=== PATIENT | male | born 1960 | race Caucasian/White ===

== ENCOUNTER 2023-01-09 15:40 | Inpatient (IN) | payer MEDICARE ==
--- NOTE | 2023-01-09 16:24 | XR ---
EXAMINATION TYPE: XR chest 1V DATE OF EXAM: 01/09/2023 4:17 PM CLINICAL INDICATION:Male, 62 years old with history of difficulty breathing; [facility] COMPARISON: 07/02/2015 CT chest TECHNIQUE: XR chest 1V Frontal view of the chest. FINDINGS: Lungs/Pleura: Low lung volumes are present. There is no evidence of pleural effusion, focal consolida tion, or pneumothorax. Pulmonary vascularity: Pulmonary vascular congestion. Heart/mediastinum: Cardiomediastinal silhouette is enlarged and stable. Musculoskeletal: No acute osseous pathology. IMPRESSION: Low lung volumes with a generalized hazy appearance which could represent atelectasis versus pulmonar y edema correlate with serum BNP.
[2023-01-09 16:30] LABS: Basophils % (A) 0 %; Eosinophils # (A) 0.2 k/uL (0-0.7); Eosinophils % (A) 3 %; HCT 42.7 % (39.0-53.0); HGB 13.6 gm/dL (13.0-17.5); Hypochromasia Slight; Lymphocytes # (A) 1.5 k/uL (1.0-4.8); Lymphocytes % (A) 17 %; MCH 30.2 pg (25.0-35.0); MCHC 31.8 g/dL (31.0-37.0); MCV 94.9 fL (80.0-100.0); Mean Platelet Volume 7.7; Monocytes # (A) 0.8 k/uL (0-1.0); Monocytes % (A) 9 %; Neutrophils # (A) 6.1 k/uL (1.3-7.7); Neutrophils % (A) 70 %; Platelet Count 225 k/uL (150-450); RDW 13.4 % (11.5-15.5); WBC 8.7 k/uL (3.8-10.6)
--- NOTE | 2023-01-09 16:30 | ED ---
General Adult HPI - General Chief complaint: Shortness of Breath Stated complaint: sob Time Seen by Provider: 01/09/23 15:55 Source: patient, RN notes reviewed, old records reviewed Mode of arrival: wheelchair Limitations: no limitations - History of Present Illness Initial comments: This is a 62-year-old male who presents emergency Department for shortness of breath. Patient states over the last month he needs to be on his oxygen 100% of the time. Patient states he went to his doctor's office today because of the way he looked the patient was sent to the emergency department. And we were told that his oxygenation was in the 70s. Patient denies any recent fever chills or cough per patient denies chest pain or palpitations. Patient states it is more difficulty breathing and he does have more swelling in his legs. Patient states he was a long-time smoker. - Related Data Home Medications Medication Instructions Recorded Confirmed Albuterol Nebulized [Ventolin 2.5 mg INHALATION RT-BID 01/09/23 01/09/23 Nebulized] Aspirin EC [Ecotrin Low Dose] 81 mg PO DAILY 01/09/23 01/09/23 Budesonide [Pulmicort] 0.5 mg INHALATION RT-BID 01/09/23 01/09/23 Cholecalciferol (Vitamin D3) 75 mcg PO DAILY 01/09/23 01/09/23 [Vitamin D3 (3000 Iu)] Enalapril [Vasotec] 20 mg PO DAILY 01/09/23 01/09/23 Ibuprofen [Motrin] 800 mg PO BID 01/09/23 01/09/23 Troy-3/Dha/Epa/Fish Oil [Fish Oil 1 cap PO DAILY 01/09/23 01/09/23 1,000 mg Softgel] Simvastatin 40 mg PO DAILY 01/09/23 01/09/23 allopurinoL [Zyloprim] 300 mg PO DAILY 01/09/23 01/09/23 atenoloL [Tenormin] 50 mg PO BID 01/09/23 01/09/23 predniSONE 5 mg PO DAILY 01/09/23 01/09/23 Allergies Allergy/AdvReac Type Severity Reaction Status Date / Time No Known Allergies Allergy Verified 01/09/23 17:49 Review of Systems ROS Statement: Those systems with pertinent positive or pertinent negative responses have been documented in the HPI. ROS Other: All systems not noted in ROS Statement are negative. Past Medical History Past Medical History: COPD, Hypertension Additional Past Medical History / Comment(s): GOUT, Arthritis, High Cholestrol History of Any Multi-Drug Resistant Organisms: None Reported Past Surgical History: No Surgical Hx Reported Past Psychological History: No Psychological Hx Reported Smoking Status: Former smoker Past Alcohol Use History: Occasional Past Drug Use History: None Reported General Exam - General Exam Comments Initial Comments: GENERAL: Patient is well-developed and well-nourished. Patient is nontoxic and well- hydrated and is in mild distress. ENT: Neck is soft and supple. No significant lymphadenopathy is noted. Oropharynx is clear. Moist mucous membranes. Neck has full range of motion without elic iting any pain. EYES: The sclera were anicteric and conjunctiva were pink and moist. Extraocular movements were intact and pupils were equal round and reactive to light. Eyelids were unremarkable. PULMONARY: Diminished breath sounds in the bases with crackles bilaterally CARDIOVASCULAR: There is a regular rate and rhythm without any murmurs gallops or rubs. ABDOMEN: Soft and nontender with normal bowel sounds. SKIN: Skin is clear with no lesions or rashes and otherwise unremarkable. NEUROLOGIC: Patient is alert and oriented x3. Cranial nerves II through XII are grossly intact. Motor and sensory are also intact. Normal speech, volume and content. Symmetrical smile. MUSCULOSKELETAL: Normal extremities with adequate strength and full range of motion. 2+ bilaterally LYMPHATICS: No significant lymphadenopathy is noted PSYCHIATRIC: Normal psychiatric evaluation. Limitations: no limitations Course Vital Signs 01/09/23 01/09/23 01/09/23 15:42 16:00 16:08 Temperature 98.9 F Pulse Rate 84 81 Respiratory 25 H 24 Rate Blood Pressure 111/64 107/75 O2 Sat by Pulse 68 L 95 Oximetry Fraction of 50 50 Inspired Oxygen (FIO2) 01/09/23 01/09/23 01/09/23 16:30 17:00 17:52 Temperature Pulse Rate 78 68 Respiratory 13 19 Rate Blood Pressure 126/78 136/101 O2 Sat by Pulse 96 95 Oximetry Fraction of 50 50 50 Inspired Oxygen (FIO2) 01/09/23 01/09/23 01/09/23 19:33 20:15 21:16 Temperature Pulse Rate 79 82 Respiratory 17 Rate Blood Pressure 131/94 117/90 O2 Sat by Pulse 94 L 95 Oximetry Fraction of 50 Inspired Oxygen (FIO2) 01/10/23 01/10/23 01/10/23 00:00 01:30 01:32 Temperature Pulse Rate 71 Respiratory 20 Rate Blood Pressure 144/93 O2 Sat by Pulse 93 L 85 L 90 L Oximetry Fraction of Inspired Oxygen (FIO2) 01/10/23 01/10/23 01/10/23 04:00 06:00 07:54 Temperature Pulse Rate 78 83 76 Respiratory 16 22 Rate Blood Pressure 132/83 124/94 O2 Sat by Pulse 90 L 93 L Oximetry Fraction of Inspired Oxygen (FIO2) 01/10/23 01/10/23 01/10/23 07:58 08:10 09:00 Temperature Pulse Rate 70 92 Respiratory 20 Rate Blood Pressure 120/87 O2 Sat by Pulse 93 L 91 L Oximetry Fraction of Inspired Oxygen (FIO2) 01/10/23 01/10/23 01/10/23 11:46 11:57 14:35 Temperature Pulse Rate 79 78 Respiratory 24 22 Rate Blood Pressure 102/70 105/78 O2 Sat by Pulse 90 L 92 L 91 L Oximetry Fraction of Inspired Oxygen (FIO2) 01/10/23 01/10/23 01/10/23 16:45 17:21 17:33 Temperature Pulse Rate 76 79 79 Respiratory 22 Rate Blood Pressure 111/83 O2 Sat by Pulse 90 L Oximetry Fraction of Inspired Oxygen (FIO2) 01/10/23 01/10/23 18:34 20:00 Temperature 98.3 F Pulse Rate 84 86 Respiratory 22 20 Rate Blood Pressure 120/91 124/87 O2 Sat by Pulse 95 90 L Oximetry Fraction of Inspired Oxygen (FIO2) Medical Decision Making - Medical Decision Making EKG was interpreted by myself. EKG shows A. fib at 84 bpm QRS is 89 Q-T intervals 33 QTC is 424. Patient's EKG shows no ST segment patient or depression Was pt. sent in by a medical professional or institution (, PA, DIRECTOR OF GRADUATE MEDICAL EDUCATION, urgent care, hospital, or prison...) When possible be specific @ -Patient was sent in by his primary medical care doctor Did you speak to anyone other than the patient for history (EMS, parent, family, police, friend...)? What history was obtained from this source @ - gave a lot of the history since patient was out of breath Did you review nursing and triage notes (agree or disagree)? Why? @ -I reviewed and agree with nursing and triage notes Were old charts reviewed (outside hosp., previous admission, EMS record, old EKG, old radiological studies, urgent care reports/EKG's, prison records)? Report findings @ -I reviewed prior labs and prior radiological studies Differential Diagnosis (chest pain, altered mental status, abdominal pain women, abdominal pain men, vaginal bleeding, weakness, fever, dyspnea, syncope, headache, dizziness, GI bleed, back pain, seizure, CVA, palpatations, mental health, musculoskeletal)? @ -Differential Dyspnea: Coronary syndrome, arrhythmia, tamponade, asthma, COPD, pulmonary embolism, pneumonia, pneumothorax, pulmonary effusion, anaphylaxis, diabetic ketoacidosis, flailed chest, pulmonary contusion, diaphragmatic rupture, anemia, neuromuscular, this is not meant to be an all-inclusive list. EKG interpreted by me (3pts min.). @ -As above X-rays interpreted by me (1pt min.). @ -Acute pulmonary edema CT interpreted by me (1pt min.). @ -None done U/S interpreted by me (1pt. min.). @ -None done What testing was considered but not performed or refused? (CT, X-rays, U/S, la bs)? Why? @ -None What meds were considered but not given or refused? Why? @ -None Did you discuss the management of the patient with other professionals (professionals i.e. , PA, DIRECTOR OF GRADUATE MEDICAL EDUCATION, lab, RT, psych nurse, psychotherapist social worker, tooth cutter, teacher, delinquency prevention officer, nurse outreach case manager)? Give summary @ -I spoke with a [facility] hospital they agreed to admit the patient Was smoking cessation discussed for >3mins.? @ -No Was critical care preformed (if so, how long)? @ -5 minutes Were there social determinants of health that impacted care today? How? (Homelessness, low income, unemployed, alcoholism, drug addiction, transportation, low edu. Level, literacy, decrease access to med. care, usp, rehab)? @ -No Was there de-escalation of care discussed even if they declined (Discuss DNR or withdrawal of care, Hospice)? DNR status @ -No What co-morbidities impacted this encounter? (DM, HTN, Smoking, COPD, CAD, Cancer, CVA, ARF, Chemo, Hep., AIDS, mental health diagnosis, sleep apnea, morbid obesity)? @ -None Was patient admitted / discharged? Hospital course, mention meds given and route, prescriptions, significant lab abnormalities, going to OR and other pertinent info. @ -Patient was placed on BiPAP on arrival because he was oxygenating in the 70s. Patient was feeling considerably better on BiPAP x-ray showed pulmonary edema I started the patient on Lasix. Patient will be getting a CAT scan he will PE. I spoke to [facility] hospitalist agreed to admit the patient admitted the patient wrote admitting orders I consulted cardiology Undiagnosed new problem with uncertain prognosis? @ -No Drug Therapy requiring intensive monitoring for toxicity (Heparin, Nitro, Insulin, Cardizem)? @ -No Were any procedures done? @ -No Diagnosis/symptom? @ -Acute pulmonary edema Acute, or Chronic, or Acute on Chronic? @ -Acute Uncomplicated (without systemic symptoms) or Complicated (systemic symptoms)? @ -Complicated Side effects of treatment? @ -No Exacerbation, Progression, or Severe Exacerbation? @ -No Poses a threat to life or bodily function? How? (Chest pain, USA, IA, pneumonia, PE, COPD, DKA, ARF, appy, cholecystitis, CVA, Diverticulitis, Homicidal, Suicidal, threat to staff... and all critical care pts) @ -Yes this could lead to hypoxia and end organ dysfunction - Lab Data Result diagrams: 01/09/23 16:10 01/09/23 16:10 Lab Results 01/09/23 01/09/23 01/09/23 Range/Units 16:10 16:10 16:10 WBC 8.7 (3.8-10.6) k/uL RBC 4.50 (4.30-5.90) m/uL Hgb 13.6 (13.0-17.5) gm/dL Hct 42.7 (39.0-53.0) % MCV 94.9 (80.0-100.0) fL MCH 30.2 (25.0-35.0) pg MCHC 31.8 (31.0-37.0) g/dL RDW 13.4 (11.5-15.5) % Plt Count 225 (150-450) k/uL MPV 7.7 Neutrophils % 70 % Lymphocytes % 17 % Monocytes % 9 % Eosinophils % 3 % Basophils % 0 % Neutrophils # 6.1 (1.3-7.7) k/uL Lymphocytes # 1.5 (1.0-4.8) k/uL Monocytes # 0.8 (0-1.0) k/uL Eosinophils # 0.2 (0-0.7) k/uL Basophils # 0.0 (0-0.2) k/uL Hypochromasia Slight PT 10.8 (10.0-12.5) sec INR 1.0 (<1.2) APTT 25.3 (22.0-30.0) sec D-Dimer 0.91 H (<0.60) mg/L FEU Sample Site ABG pH (7.35-7.45) ABG pCO2 (35-45) mmHg ABG pO2 (83-108) mmHg ABG HCO3 (21-25) mmol/L ABG Total CO2 (19-24) mmol/L ABG O2 Saturation (94-97) % ABG Base Excess mmol/L Brady Test VBG pH (7.31-7.41) VBG pCO2 (37-51) mmHg VBG HCO3 (24-28) mmol/L FiO2 % Sodium 137 (137-145) mmol/L Potassium 4.4 (3.5-5.1) mmol/L Chloride 88 L (98-107) mmol/L Carbon Dioxide 42 H* (22-30) mmol/L Anion Gap 7 mmol/L BUN 14 (9-20) mg/dL Creatinine 0.58 L (0.66-1.25) mg/dL Est GFR (CKD-EPI)AfAm >90 (>60 ml/min/1.73 sqM) Est GFR (CKD-EPI)NonAf >90 (>60 ml/min/1.73 sqM) Glucose 97 (74-99) mg/dL Lactic Ac Sepsis Rflx Plasma Lactic Acid Jair (0.7-2.0) mmol/L Calcium 9.3 (8.4-10.2) mg/dL Magnesium 1.7 (1.6-2.3) mg/dL Total Bilirubin 0.7 (0.2-1.3) mg/dL AST 20 (17-59) U/L ALT 14 (4-49) U/L Alkaline Phosphatase 51 (38-126) U/L Troponin I (0.000-0.034) ng/mL NT-Pro-B Natriuret Pep 2020 pg/mL Total Protein 6.8 (6.3-8.2) g/dL Albumin 3.8 (3.5-5.0) g/dL Influenza Type A (PCR) (Not Detectd) Influenza Type B (PCR) (Not Detectd) RSV (PCR) (Not Detectd) SARS-CoV-2 (PCR) (Not Detectd) 01/09/23 01/09/23 01/09/23 Range/Units 16:10 16:10 16:10 WBC (3.8-10.6) k/uL RBC (4.30-5.90) m/uL Hgb (13.0-17.5) gm/dL Hct (39.0-53.0) % MCV (80.0-100.0) fL MCH (25.0-35.0) pg MCHC (31.0-37.0) g/dL RDW (11.5-15.5) % Plt Count (150-450) k/uL MPV Neutrophils % % Lymphocytes % % Monocytes % % Eosinophils % % Basophils % % Neutrophils # (1.3-7.7) k/uL Lymphocytes # (1.0-4.8) k/uL Monocytes # (0-1.0) k/uL Eosinophils # (0-0.7) k/uL Basophils # (0-0.2) k/uL Hypochromasia PT (10.0-12.5) sec INR (<1.2) APTT (22.0-30.0) sec D-Dimer (<0.60) mg/L FEU Sample Site ABG pH (7.35-7.45) ABG pCO2 (35-45) mmHg ABG pO2 (83-108) mmHg ABG HCO3 (21-25) mmol/L ABG Total CO2 (19-24) mmol/L ABG O2 Saturation (94-97) % ABG Base Excess mmol/L Brady Test VBG pH 7.40 (7.31-7.41) VBG pCO2 74 H* (37-51) mmHg VBG HCO3 46 H (24-28) mmol/L FiO2 % Sodium (137-145) mmol/L Potassium (3.5-5.1) mmol/L Chloride (98-107) mmol/L Carbon Dioxide (22-30) mmol/L Anion Gap mmol/L BUN (9-20) mg/dL Creatinine (0.66-1.25) mg/dL Est GFR (CKD-EPI)AfAm (>60 ml/min/1.73 sqM) Est GFR (CKD-EPI)NonAf (>60 ml/min/1.73 sqM) Glucose (74-99) mg/dL Lactic Ac Sepsis Rflx Plasma Lactic Acid Jair 2.3 H* (0.7-2.0) mmol/L Calcium (8.4-10.2) mg/dL Magnesium (1.6-2.3) mg/dL Total Bilirubin (0.2-1.3) mg/dL AST (17-59) U/L ALT (4-49) U/L Alkaline Phosphatase (38-126) U/L Troponin I <0.012 (0.000-0.034) ng/mL NT-Pro-B Natriuret Pep pg/mL Total Protein (6.3-8.2) g/dL Albumin (3.5-5.0) g/dL Influenza Type A (PCR) (Not Detectd) Influenza Type B (PCR) (Not Detectd) RSV (PCR) (Not Detectd) SARS-CoV-2 (PCR) (Not Detectd) 01/09/23 01/09/23 01/09/23 Range/Units 16:19 17:28 17:40 WBC (3.8-10.6) k/uL RBC (4.30-5.90) m/uL Hgb (13.0-17.5) gm/dL Hct (39.0-53.0) % MCV (80.0-100.0) fL MCH (25.0-35.0) pg MCHC (31.0-37.0) g/dL RDW (11.5-15.5) % Plt Count (150-450) k/uL MPV Neutrophils % % Lymphocytes % % Monocytes % % Eosinophils % % Basophils % % Neutrophils # (1.3-7.7) k/uL Lymphocytes # (1.0-4.8) k/uL Monocytes # (0-1.0) k/uL Eosinophils # (0-0.7) k/uL Basophils # (0-0.2) k/uL Hypochromasia PT (10.0-12.5) sec INR (<1.2) APTT (22.0-30.0) sec D-Dimer (<0.60) mg/L FEU Sample Site Lbrach ABG pH 7.44 (7.35-7.45) ABG pCO2 71 H* (35-45) mmHg ABG pO2 61 L (83-108) mmHg ABG HCO3 48 H* (21-25) mmol/L ABG Total CO2 50 H (19-24) mmol/L ABG O2 Saturation 92.1 L (94-97) % ABG Base Excess 23.3 mmol/L Brady Test Yes VBG pH (7.31-7.41) VBG pCO2 (37-51) mmHg VBG HCO3 (24-28) mmol/L FiO2 50 % Sodium (137-145) mmol/L Potassium (3.5-5.1) mmol/L Chloride (98-107) mmol/L Carbon Dioxide (22-30) mmol/L Anion Gap mmol/L BUN (9-20) mg/dL Creatinine (0.66-1.25) mg/dL Est GFR (CKD-EPI)AfAm (>60 ml/min/1.73 sqM) Est GFR (CKD-EPI)NonAf (>60 ml/min/1.73 sqM) Glucose (74-99) mg/dL Lactic Ac Sepsis Rflx Y Plasma Lactic Acid Jair (0.7-2.0) mmol/L Calcium (8.4-10.2) mg/dL Magnesium (1.6-2.3) mg/dL Total Bilirubin (0.2-1.3) mg/dL AST (17-59) U/L ALT (4-49) U/L Alkaline Phosphatase (38-126) U/L Troponin I (0.000-0.034) ng/mL NT-Pro-B Natriuret Pep pg/mL Total Protein (6.3-8.2) g/dL Albumin (3.5-5.0) g/dL Influenza Type A (PCR) Not Detected (Not Detectd) Influenza Type B (PCR) Not Detected (Not Detectd) RSV (PCR) Not Detected (Not Detectd) SARS-CoV-2 (PCR) Not Detected (Not Detectd) Disposition Clinical Impression: Acute pulmonary edema Disposition: ADMITTED IP TO THIS HOSP
[2023-01-09 16:31] LABS: VBG PH 7.4 (7.31-7.41)
[2023-01-09 16:45] LABS: Partial Thromboplastin Time 25.3 sec (22.0-30.0); Prothrombin Time 10.8 sec (10.0-12.5)
[2023-01-09 17:26] LABS: ALT 14 U/L (4-49); AST 20 U/L (17-59); African American GFR (CKD) >90 (>60 ml/min/1.73 sqM); Albumin 3.8 g/dL (3.5-5.0); Alkaline Phosphatase 51 U/L (38-126); Anion Gap 7 mmol/L; Blood Urea Nitrogen 14 mg/dL (9-20); Calcium 9.3 mg/dL (8.4-10.2); Chloride 88 mmol/L (98-107); Glucose 97 mg/dL (74-99); Magnesium 1.7 mg/dL (1.6-2.3); NT-Pro-B-Type Natriuretic Pept 2020 pg/mL; Non-African American GFR(CKD) >90 (>60 ml/min/1.73 sqM); Potassium 4.4 mmol/L (3.5-5.1); Sodium 137 mmol/L (137-145); Total Bilirubin 0.7 mg/dL (0.2-1.3); Total Protein 6.8 g/dL (6.3-8.2)
[2023-01-09 17:28] LABS: Carbon Dioxide 42 mmol/L (22-30)
[2023-01-09 17:43] LABS: ABG Base Excess 23.3 mmol/L; ABG Oxygen Saturation 92.1 % (94-97); ABG PH 7.44 (7.35-7.45); ABG PO2 61 mmHg (83-108); ABG TCO2 50 mmol/L (19-24); Allen Test Performed? Yes
[2023-01-09 17:47] LABS: ABG HCO3 48 mmol/L (21-25); ABG PCO2 71 mmHg (35-45)
[2023-01-09] MEDS ORDERED: FUROSEMIDE 10 MG/ML 4 ML VIAL IV STA (18:07)
--- NOTE | 2023-01-09 20:19 | CT ---
CT CHEST FOR PULMONARY EMBOLISM. EXAMINATION TYPE: CT chest angio for PE DATE OF EXAM: 01/09/2023 INDICATION: Increased SOB x1mo. Sent to ER by PCP due to low oxygen SOB. PCP said he heard crackles i n lungs and did not like color of pt. JULIANNA and elevated D-dimer. Pt was on 2 liters of O2 at home and he increased it to 5 [address] his own. CT DLP: 833.1 mGycm, Automated exposure control for dose reduction was used. CONTRAST: Patient injected with 100 ml mL of Isovue 370. COMPARISON: None TECHNIQUE: CT of the chest is performed on a spiral scan at 2 mm thick sections. Study is performed with intravenous contrast timed for evaluation for pulmonary embolism. This will limit additional po rtions of the evaluation. 3-D MIP images reconstructed by the technologist are reviewed on the compu ter in the coronal and sagittal planes. FINDINGS: No persistent filling defects are evident to suggest an acute pulmonary embolism. There is a prominent 1.5 cm lymph node paratracheal region. Additional smaller lymph nodes are presen t. There are several lymph nodes measuring greater than 1 cm. Additional workup is recommended. Metas tatic disease should be considered. The ascending aorta diameter at the level of the main pulmonary artery is 4.1 cm. The main pulmonary artery diameter at the bifurcation is 4.1 cm. Coronary artery c alcification is present. Small right and minimal left pleural effusions are present. Compressive atelectasis or consolidation may be at the lung bases adjacent to the pleural effusions. Limited CT section through the upper abdomen. Reflux into the superior portion of the inferior vena c adina is evident. No septal deviation is evident.. IMPRESSION: 1. No acute pulmonary embolism. 2. Multiple enlarged mediastinal lymph nodes. Additional workup is recommended. 3. Small right and minimal left pleural effusion. Some adjacent compressive atelectasis or infiltrate is likely present.
[2023-01-09] MEDS: FUROSEMIDE 10 MG/ML 4 ML VIAL IV SCH (20:33)
[2023-01-09] MEDS: NITROGLYCERIN OINT 1 INCH/GM PACKET TOPICAL SCH (23:53)
[2023-01-10] MEDS: NITROGLYCERIN OINT 1 INCH/GM PACKET TOPICAL SCH ×3 (06:46→18:35)
[2023-01-10] MEDS ORDERED: ALBUTEROL NEBULIZED 2.5 MG/3 ML INHALATION SCH (08:00)
[2023-01-10] MEDS ORDERED: BUDESONIDE 0.5 MG/2 ML NEBU INHALATION SCH (08:00)
[2023-01-10] MEDS: ATORVASTATIN 20 MG TAB PO SCH (08:59)
[2023-01-10] MEDS: FUROSEMIDE 10 MG/ML 4 ML VIAL IV SCH ×2 (08:59→16:46)
[2023-01-10] MEDS: CHOLECALCIFEROL 25 MCG (1000 IU) TABLET PO SCH (08:59)
[2023-01-10] MEDS: allopurinoL 300 MG TAB PO SCH (09:00)
[2023-01-10] MEDS: lisinopriL 20 MG TAB PO SCH (09:00)
[2023-01-10] MEDS ORDERED: NON FORMULARY DRUG (Omega-3/Dha/Epa/Fish Oil [Fish Oil 1,000 Mg Softgel] 1 EACH Capsule) PO SCH (09:00)
[2023-01-10] MEDS: ASPIRIN 81 MG PO SCH (09:00)
[2023-01-10] MEDS: atenoloL 50 MG TAB PO SCH ×2 (09:00→22:44)
[2023-01-10] MEDS: IBUPROFEN 800 MG TAB PO SCH ×2 (09:00→22:43)
--- NOTE | 2023-01-10 09:52 | CONS ---
CONSULTATION CHIEF COMPLAINT: Shortness of breath. HISTORY OF PRESENT ILLNESS: Lucas is a 62-year-old gentleman, who is morbidly obese, has history of COPD on home O2, who was sent to the hospital by his primary care physician. He was somewhat short of breath and when he went to see his primary care physician, his oxygenation was very low, sent to the ER where he had been treated with nebulizers and diuretics with significant improvement in his symptoms. At the time of my evaluation, his oxygenation is better. He does not seem to be in respiratory distress so far. He had received IV Lasix and nebulizers. The patient's clinical presentation seems to be due to a combination of CHF and COPD exacerbations. I am going to obtain a 2D echo to document his LV function. PAST MEDICAL HISTORY: Significant for COPD, dyslipidemia, hypertension. MEDICATIONS: Medications at home included: 1. Fish oil. 2. Aspirin. 3. Vitamin D. 4. Simvastatin. 5. Motrin. 6. Ventolin. 7. Tenormin 50 b.i.d. 8. Zyloprim. 9. Vasotec. ALLERGIES: There are no known drug allergies. FAMILY HISTORY: Negative for premature coronary artery disease. SOCIAL HISTORY: Negative for current smoking, EtOH abuse or drug abuse. REVIEW OF SYSTEMS: A review of systems has been performed, pertinent's are as documented. PHYSICAL EXAMINATION: GENERAL: He is comfortable at rest. VITAL SIGNS: Heart rate is 70 beats per minute, blood pressure is 124/94, respiratory rate 18, O2 saturation is 93% on 12 L. NECK: There is no jugular venous distention. Carotid upstroke is normal. There is no bruit. CHEST: Reveals diminished air entry with bilateral rhonchi. HEART: Reveals first and second heart sounds. A grade 4/6 ejection systolic murmur and a systolic murmur at the apex. ABDOMEN: Soft. EXTREMITIES: Reveal bilateral moderate edema. LABORATORY DATA: Show that the BNP is elevated at 2020. Troponin is normal. COVID test is negative. Blood gases reveal a pH of 7.4, pCO2 of 71, PO2 of 61, BUN is 14, creatinine is 0.5. ASSESSMENT: 1. Acute exacerbation of chronic obstructive pulmonary disease. 2. Acute-onset congestive heart failure. 3. Valvular heart disease. PLAN: We will treat the patient with IV Lasix, aspirin, beta blockers, CIARA inhibitors. Obtain a 2D echo and decide on further course of action based on how his symptoms evolve and what the echo shows. MMODL / IJN: [id number] /
--- NOTE | 2023-01-10 12:42 | CA ---
Transthoracic Echo Report Name: Lucas Titus Age: 62 Gender: M : 1960 Exam Date: 01/10/2023 10:02 Exam Location: [facility] Ht (in): 72 Wt (lb): 270 Ordering Physician: Janusz Grullon MD ([id number]) Attending/Referring Phys: Yadi CARRERO Residential Plumber Eli Wood RDCS Procedure CPT: Indications: chf Cardiac Hx: Technical Quality: Technically difficult study Contrast 1: Definity Total Dose (mL): 2 Contrast 2: Total Dose (mL): MEASUREMENTS (Male / Female) Normal Values 2D ECHO LV Diastolic Diameter PLAX 4.5 cm 4.2 - 5.9 / 3.9 - 5.3 cm LV Systolic Diameter PLAX 3.7 cm IVS Diastolic Thickness 1.9 cm 0.6 - 1.0 / 0.6 - 0.9 cm LVPW Diastolic Thickness 1.8 cm 0.6 - 1.0 / 0.6 - 0.9 cm LV Relative Wall Thickness 0.8 RV Internal Dim ED PLAX 3.3 cm M-MODE Aortic Root Diameter MM 3.3 cm LA Systolic Diameter MM 5.7 cm LA Ao Ratio MM 1.7 AV Cusp Separation MM 1.7 cm DOPPLER AV Peak Velocity 123.1 cm/s AV Peak Gradient 6.1 mmHg AV Mean Velocity 90.7 cm/s AV Mean Gradient 3.5 mmHg AV Velocity Time Integral 23.8 cm LVOT Peak Velocity 94.9 cm/s LVOT Peak Gradient 3.6 mmHg LVOT Velocity Time Integral 20.0 cm MV Area PHT 2.2 cm??? Mitral E Point Velocity 96.4 cm/s Mitral A Point Velocity 21.9 cm/s Mitral E to A Ratio 4.4 MV Deceleration Time 346.4 ms MV E' Velocity 5.3 cm/s Mitral E to MV E' Ratio 18.3 TR Peak Velocity 166.9 cm/s TR Peak Gradient 11.1 mmHg Right Ventricular Systolic Press 16.1 mmHg FINDINGS Left Ventricle Severely increased left ventricular wall thickness. Left ventricular cavity size normal. Left ventricular ejection fraction is estimated at 55-60 %. Right Ventricle Normal right ventricular size and function. Right ventricle not well visualized. Right ventricular systolic pressure within normal limits. Right Atrium Right atrium not well visualized. Left Atrium Moderately increased left atrial area. Mitral Valve Mitral valve not well visualized. Moderate mitral annular calcification. Aortic Valve No aortic valve stenosis or regurgitation.aortic valve sclerosis. Tricuspid Valve Mild tricuspid regurgitation.structurally normal tricuspid valve. Pulmonic Valve Pulmonic valve not well visualized. Pericardium No pericardial effusion. Aorta Normal size aortic root and proximal ascending aorta. CONCLUSIONS Technically difficult study. Definity ECHO contrast used for improved visualization of the endocardial borders (inadequate visualization of two or more contiguous segments). Normal left ventricle size and systolic function, severe hypertrophy was noted Limited Doppler study with mild tricuspid regurgitation Previewed by: Dr. Justa Larios MD (Electronically Signed) Final Date: 10 January 2023 12:41
[2023-01-10] MEDS ORDERED: MELATONIN 3 MG TABLET PO PRN (13:10)
[2023-01-10] MEDS ORDERED: ALPRAZolam 0.25 MG TAB PO PRN (13:10)
[2023-01-10] MEDS ORDERED: ONDANSETRON 4 MG/2 ML VIAL IVP PRN (13:10)
[2023-01-10] MEDS ORDERED: ACETAMINOPHEN TAB 325 MG TAB PO PRN (13:10)
[2023-01-10] MEDS ORDERED: CALCIUM CARBONATE 500 MG CHEWABLE PO PRN (13:10)
[2023-01-10] MEDS ORDERED: NALOXONE 0.4 MG/ML 1 ML VIAL IV PRN (13:10)
[2023-01-10] MEDS ORDERED: LACTULOSE 20 GM/30 ML CUP PO PRN (13:10)
[2023-01-10] MEDS: guaiFENesin 600 MG TABLET.ER PO SCH ×3 (14:33→22:44)
[2023-01-10] MEDS: methylPREDNISolone SOD SUCCI 125 MG/2 ML VIAL IV SCH (14:34)
[2023-01-10] MEDS: ENOXAPARIN 40 MG/0.4 ML SYRINGE SQ SCH (14:36)
[2023-01-10] MEDS: FORMOTEROL FUMARATE 20 MCG/2 ML NEBU INHALATION SCH ×2 (16:59→20:26)
[2023-01-10] MEDS: IPRATROPIUM-ALBUTEROL 3 ML NEB INHALATION SCH ×3 (17:19→20:26)
--- NOTE | 2023-01-10 19:02 | P.HPIM ---
History of Present Illness H&P Date: 01/10/23 Chief Complaint: Short of breath This is a 62-year-old patient, follows with Dr. Red Ramirez. Patient has been getting more short of breath. Reduce his family doctor who not iced him to be looking caruso. Short of breath. White sputum. No fever no chills. Decreased appetite. No chest pain. Patient has home oxygen 2 L. Patient was here put on BiPAP on arrival. Tired. Up in a chair. Review of systems: GEN.: Tired EYES: None HEENT: None NECK: None RESPIRATORY: As above CARDIOVASCULAR: Edema GASTROINTESTINAL: None GENITOURINARY: None MUSCULOSKELETAL: Some joint pains LYMPHATICS: None HEMATOLOGICAL: None PSYCHIATRY: None NEUROLOGICAL: None Past medical history to include: COPD, hypertension, home oxygen, gout, arthritis, hypercholesterolemia Social history: . Retired from different jobs. Been drinking somewhat excessive alcohol in the past. Smoked a pack a day for 42 years, stopped 3 years ago. Physical examination: VITAL SIGNS: 98.9, 94, 25, 1 on , 95% on BiPAP-on presentation GENERAL: BMI 36.6, sitting up in a chair awake short of breath. EYES: Pupils equal. Conjunctiva normal. HEENT: External appearance of nose and ears normal, oral cavity grossly normal. NECK: JVD unable to assess; masses not palpable. HEART: First and second heart sounds are normal; edema present. LUNGS: Respiratory rate increased decreased breath sounds, crackles. ABDOMEN: Soft, nontender, liver spleen not palpable, no masses palpable. PSYCH: Alert and oriented x3; mood and affect normal. MUSCULOSKELETAL:No Clubbing/cyanosis;muscles-grossly intact NEUROLOGICAL: Cranial nerves grossly intact; no facial asymmetry, power and sensation grossly intact. LYMPHATICS: No lymph nodes palpable in the axilla and neck INVESTIGATIONS, reviewed in the clinical context: January 09: White count 8.7 hemoglobin 13.6 platelets 225 sodium 137 potassium 4.4 bicarb 42 BUN 14 creatinine 0.58 lactic acid 2.3 Troponin I less than 0.012 proBNP 2019 Influenza type A, B, RSV, COVID-19: Not detected ABG: PH 7.4 pCO2 71 pO2 61 EKG tracing personally reviewed by me-possible atrial fibrillation. Chest x-ray film personally reviewed by me-cardiomegaly, venous prominence Chest CTA: No PE. Multiple enlarged mediastinal lymph node. Small right and minimal left pleural effusion. Assessment plan: -Acute congestive heart failure exacerbation, EF not known Fluid restriction. IV Lasix. Cardiology consulted. Telemetry. -Acute COPD exacerbation in a ex-smoker DuoNeb every 4. Nebulized Perforomist and Pulmicort. IV Solu-Medrol. -Obesity BMI 36.6 Weight loss measures -Acute hypoxic hypercapnic respiratory failure from seated exacerbation and CHF Patient is put on BiPAP on presentation. -Essential hypertension Vasotec 20 mg, Tenormin 50 mg twice a day -Hypercholesterolemia Simvastatin -Primary osteoarthritis Tylenol when necessary Consultation to pulmonary and cardiology. 2-D echocardiogram. Home medications reviewed. Discussed with patient Past Medical History Past Medical History: COPD, Hypertension Additional Past Medical History / Comment(s): GOUT, Arthritis, High Cholestrol History of Any Multi-Drug Resistant Organisms: None Reported Past Surgical History: No Surgical Hx Reported Past Psychological History: No Psychological Hx Reported Smoking Status: Former smoker Past Alcohol Use History: Occasional Past Drug Use History: None Reported Medications and Allergies Home Medications Medication Instructions Recorded Confirmed Type Albuterol Nebulized [Ventolin 2.5 mg INHALATION RT-BID 01/09/23 01/09/23 History Nebulized] Aspirin EC [Ecotrin Low Dose] 81 mg PO DAILY 01/09/23 01/09/23 History Budesonide [Pulmicort] 0.5 mg INHALATION RT-BID 01/09/23 01/09/23 History Cholecalciferol (Vitamin D3) 75 mcg PO DAILY 01/09/23 01/09/23 History [Vitamin D3 (3000 Iu)] Enalapril [Vasotec] 20 mg PO DAILY 01/09/23 01/09/23 History Ibuprofen [Motrin] 800 mg PO BID 01/09/23 01/09/23 History [place]-3/Dha/Epa/Fish Oil [Fish Oil 1 cap PO DAILY 01/09/23 01/09/23 History 1,000 mg Softgel] Simvastatin 40 mg PO DAILY 01/09/23 01/09/23 History allopurinoL [Zyloprim] 300 mg PO DAILY 01/09/23 01/09/23 History atenoloL [Tenormin] 50 mg PO BID 01/09/23 01/09/23 History predniSONE 5 mg PO DAILY 01/09/23 01/09/23 History Allergies Allergy/AdvReac Type Severity Reaction Status Date / Time No Known Allergies Allergy Verified 01/09/23 17:49 Physical Exam Vitals: Vital Signs Temp Pulse Resp BP Pulse Ox FiO2 01/10/23 09:00 92 20 120/87 91 L 01/10/23 08:10 70 01/10/23 07:58 93 L 01/10/23 07:54 76 01/10/23 06:00 83 22 124/94 93 L 01/10/23 04:00 78 16 132/83 90 L 01/10/23 01:32 90 L 01/10/23 01:30 85 L 01/10/23 00:00 71 20 144/93 93 L 01/09/23 21:16 82 117/90 95 01/09/23 20:15 79 17 131/94 94 L 01/09/23 19:33 50 01/09/23 17:52 50 01/09/23 17:00 68 19 136/101 95 50 01/09/23 16:30 78 13 126/78 96 50 01/09/23 16:08 50 01/09/23 16:00 81 24 107/75 95 50 01/09/23 15:42 98.9 F 84 25 H 111/64 68 L Intake and Output 01/09/23 01/10/23 01/10/23 22:59 06:59 14:59 Other: Weight 122.47 kg Results CBC & Chem 7: 01/09/23 16:10 01/09/23 16:10 Labs: Abnormal Lab Results - Last 24 Hours (Table) 01/09/23 01/09/23 01/09/23 Range/Units 16:10 16:10 16:10 D-Dimer 0.91 H (<0.60) mg/L FEU ABG pCO2 (35-45) mmHg ABG pO2 (83-108) mmHg ABG HCO3 (21-25) mmol/L ABG Total CO2 (19-24) mmol/L ABG O2 Saturation (94-97) % VBG pCO2 (37-51) mmHg VBG HCO3 (24-28) mmol/L Chloride 88 L (98-107) mmol/L Carbon Dioxide 42 H* (22-30) mmol/L Creatinine 0.58 L (0.66-1.25) mg/dL Plasma Lactic Acid Jair 2.3 H* (0.7-2.0) mmol/L 01/09/23 01/09/23 Range/Units 16:10 17:40 D-Dimer (<0.60) mg/L FEU ABG pCO2 71 H* (35-45) mmHg ABG pO2 61 L (83-108) mmHg ABG HCO3 48 H* (21-25) mmol/L ABG Total CO2 50 H (19-24) mmol/L ABG O2 Saturation 92.1 L (94-97) % VBG pCO2 74 H* (37-51) mmHg VBG HCO3 46 H (24-28) mmol/L Chloride (98-107) mmol/L Carbon Dioxide (22-30) mmol/L Creatinine (0.66-1.25) mg/dL Plasma Lactic Acid Jair (0.7-2.0) mmol/L
[2023-01-10] MEDS: BUDESONIDE 1 MG/2 ML NEBU INHALATION SCH ×2 (20:13→20:26)
[2023-01-11] MEDS: IPRATROPIUM-ALBUTEROL 3 ML NEB INHALATION SCH ×6 (00:14→21:41)
[2023-01-11] MEDS: FUROSEMIDE 10 MG/ML 4 ML VIAL IV SCH ×3 (00:30→15:56)
[2023-01-11] MEDS: methylPREDNISolone SOD SUCCI 125 MG/2 ML VIAL IV SCH ×2 (00:31→08:59)
[2023-01-11] MEDS: NITROGLYCERIN OINT 1 INCH/GM PACKET TOPICAL SCH (00:31)
--- NOTE | 2023-01-11 01:57 | P.CNPUL ---
History of Present Illness Consult date: 01/11/23 Requesting physician: Dylon Barry Reason for consult: dyspnea, hypoxemia Chief complaint: found to be hypoxic at doctor's office History of present illness: I am seeing this patient in consultation today 01/11/2023 after he was sent in from his primary care physician's office after being found to be hypoxic. Patient is a 62-year-old white male with past medical history significant for severe oxygen and steroid dependent COPD, hypertension, and is a previous tobacco dependence. His primary care provider is Dr. Ramirez. Patient has followed with Dr. Miller at the pulmonary office in the past, for his severe oxygen and steroid dependent COPD, but has not been back for some years. He has an FEV1 40% of predicted. Patient reportedly had a routine follow-up visit with his primary care provider yesterday, and was found to be hypoxic. On arrival to the emergency room, he was placed on BiPAP with settings 16/6 and FiO2 of 50%. ABGs done on these settings show a pO2 of 61, CO2 of 71, pH is 7.44. Currently, the BiPAP is on standby. Patient is currently sitting in the recliner, on 6 L/m nasal cannula, in no acute distress. SpO2 is 91%, which is likely near his baseline. Patient states that he chronically wears 2 L nasal cannula at home, but has increased his oxygen over the last couple months, and is up to 6 L/m nasal cannula at home. He also admits increased lower extremity swelling. Denies any chest pain, heart palpitations, orthopnea. He denies any fevers, chills, cough, chest pain, hemoptysis. Chest x-ray on arrival was consistent with pulmonary edema. Follow-up chest CTA did not show any acute pulmonary embolism. It showed small right and minimal left pleural effusions with adjacent compressive atelectasis versus infiltrate. There was also was incidentally some multiple enlarged mediastinal lymph nodes, measuring up to 1.5 cm in the paratracheal region. There were several other lymph nodes measuring greater than 1 cm. This appears to be somewhat chronic finding, as the patient had a chest CT back in 2015 which showed a 1.4 x 1 CM right paratracheal lymph node and a 1.9 x 1.3 subcarinal lymph node. Echocardiogram showed a preserved ejection fraction of 55-60% and severe increased LVH. NT proBNP was elevated at 2020. EKG on arrival shows atrial fibrillation with controlled ventricular rate. No acute ischemic changes. CBC unremarkable. CMP on arrival showed a sodium 137, potassium 4.4, chloride 88, serum bicarb 42, BUN 14, creatinine 0.58, glucose 97. Troponin less than 0.012. Negative for influenza and RSV, COVID-19. Patient has been afebrile. He is being monitored on the cardiac stepdown unit. Review of Systems REVIEW OF SYSTEMS: CONSTITUTIONAL: Denies any recent significant weight loss or weight gain. Patient does not weigh himself. Denies any fever. EYES: Denies change in vision. EARS, NOSE, MOUTH, THROAT: Denies headaches, denies sore throat. CARDIOVASCULAR: Denies chest pain, palpitations or syncopal episodes. Denies orthopnea. Admits increased lower extremity edema. RESPIRATORY: Denies cough, congestion or hemoptysis. Admits some mild exertional dyspnea. GASTROINTESTINAL: Denies change in appetite, abdominal pain, nausea and vomiting, or diarrhea GENITOURINARY: Denies hematuria, denies infections. MUSKULOSKELETAL: Denies pain, denies swelling. INTEGUMENTARY: Denies rash, denies eczema. NEUROLOGICAL: Denies recent memory loss, no recent seizure activity. PSYCHIATRIC: Denies anxiety, denies depression. HEMATOLOGIC/LYMPHATIC: Denies anemia, denies enlarged lymph node Past Medical History Past Medical History: COPD, Hypertension Additional Past Medical History / Comment(s): GOUT, Arthritis, High Cholestrol History of Any Multi-Drug Resistant Organisms: None Reported Past Surgical History: No Surgical Hx Reported Past Anesthesia/Blood Transfusion Reactions: No Reported Reaction Past Psychological History: No Psychological Hx Reported Smoking Status: Former smoker Past Alcohol Use History: Occasional Past Drug Use History: None Reported - Past Family History Father Family Medical History: Cancer Additional Family Medical History / Comment(s): COLON Mother Family Medical History: Cancer Additional Family Medical History / Comment(s): LIVER Medications and Allergies Home Medications Medication Instructions Recorded Confirmed Type Albuterol Nebulized [Ventolin 2.5 mg INHALATION RT-BID 01/09/23 01/09/23 History Nebulized] Aspirin EC [Ecotrin Low Dose] 81 mg PO DAILY 01/09/23 01/09/23 History Budesonide [Pulmicort] 0.5 mg INHALATION RT-BID 01/09/23 01/09/23 History Cholecalciferol (Vitamin D3) 75 mcg PO DAILY 01/09/23 01/09/23 History [Vitamin D3 (3000 Iu)] Enalapril [Vasotec] 20 mg PO DAILY 01/09/23 01/09/23 History Ibuprofen [Motrin] 800 mg PO BID 01/09/23 01/09/23 History [place]-3/Dha/Epa/Fish Oil [Fish Oil 1 cap PO DAILY 01/09/23 01/09/23 History 1,000 mg Softgel] Simvastatin 40 mg PO DAILY 01/09/23 01/09/23 History allopurinoL [Zyloprim] 300 mg PO DAILY 01/09/23 01/09/23 History atenoloL [Tenormin] 50 mg PO BID 01/09/23 01/09/23 History predniSONE 5 mg PO DAILY 01/09/23 01/09/23 History Allergies Allergy/AdvReac Type Severity Reaction Status Date / Time No Known Allergies Allergy Verified 01/09/23 17:49 Physical Exam Vitals: Vital Signs Temp Pulse Resp BP Pulse Ox 01/10/23 20:48 98 01/10/23 20:40 95 01/10/23 20:32 91 L 01/10/23 20:26 101 H 01/10/23 20:00 98.3 F 86 20 124/87 90 L 01/10/23 18:34 84 22 120/91 95 01/10/23 17:33 79 01/10/23 17:21 79 01/10/23 16:45 76 22 111/83 90 L 01/10/23 14:35 78 22 105/78 91 L 01/10/23 11:57 92 L 01/10/23 11:46 79 24 102/70 90 L 01/10/23 09:00 92 20 120/87 91 L 01/10/23 08:10 70 01/10/23 07:58 93 L 01/10/23 07:54 76 01/10/23 06:00 83 22 124/94 93 L 01/10/23 04:00 78 16 132/83 90 L 01/10/23 01:32 90 L 01/10/23 01:30 85 L Intake and Output 01/10/23 01/10/23 01/11/23 14:59 22:59 06:59 Output Total 1000 Balance -1000 Output: Urine 1000 Other: Weight 122.47 kg GENERAL EXAM: Alert, 62-year-old obese white male, comfortable in no apparent distress. HEAD: Normocephalic and atraumatic EYES: Normal reaction of pupils, equal size. NOSE: Clear with pink turbinates. THROAT: No erythema or exudates. NECK: No masses, no JVD. CHEST: No chest wall deformity. LUNGS: Equal air entry with diminished lung sounds throughout no crackles, wheeze, rhonchi or focal dullness. On 6 L/m nasal cannula. No conversational dyspnea or accessory muscle use.. CVS: S1 and S2 normal with no audible murmur, irregular rhythm. No extra heart sounds. Rate 95 bpm. ABDOMEN: Obese abdomen, no hepatosplenomegaly, active bowel sounds, no guarding or rigidity. SPINE: No scoliosis or deformity SKIN: No rashes CENTRAL NERVOUS SYSTEM: No focal deficits, tone is normal in all 4 extremities. EXTREMITIES: There is 3-4+ bilateral lower extremity pitting edema. No clubbing, or cyanosis. Peripheral pulses are intact. Results - Laboratory Findings CBC and BMP: 01/09/23 16:10 01/09/23 16:10 ABG ABG pH 7.44 (7.35-7.45) 01/09/23 17:40 ABG pCO2 71 mmHg (35-45) H* 01/09/23 17:40 ABG pO2 61 mmHg (83-108) L 01/09/23 17:40 ABG O2 Saturation 92.1 % (94-97) L 01/09/23 17:40 PT/INR, D-dimer PT 10.8 sec (10.0-12.5) 01/09/23 16:10 INR 1.0 (<1.2) 01/09/23 16:10 D-Dimer 0.91 mg/L FEU (<0.60) H 01/09/23 16:10 Abnormal lab findings: Abnormal Labs 01/09/23 01/09/23 01/09/23 16:10 16:10 16:10 D-Dimer 0.91 H ABG pCO2 ABG pO2 ABG HCO3 ABG Total CO2 ABG O2 Saturation VBG pCO2 VBG HCO3 Chloride 88 L Carbon Dioxide 42 H* Creatinine 0.58 L Plasma Lactic Acid Jair 2.3 H* 01/09/23 01/09/23 16:10 17:40 D-Dimer ABG pCO2 71 H* ABG pO2 61 L ABG HCO3 48 H* ABG Total CO2 50 H ABG O2 Saturation 92.1 L VBG pCO2 74 H* VBG HCO3 46 H Chloride Carbon Dioxide Creatinine Plasma Lactic Acid Jair - Diagnostic Findings Chest x-ray: image reviewed CT scan - chest: image reviewed Assessment and Plan Assessment: Acute on chronic hypoxemic and hypercapnic respiratory failure, multifactorial, secondary to exacerbation of diastolic congestive heart failure and acute COPD exacerbation. Chest x-ray was consistent with pulmonary edema. Chest CTA demonstrated cardiomegaly with small right pleural effusion and minimal left pleural effusions. There is associated compressive atelectasis. NT proBNP elevated at 2020 Atrial fibrillation with controlled ventricular rate Mediastinal adenopathy, incidentally found on follow-up chest CTA. Severe oxygen and steroid dependent COPD Chronic hypoxemic and hypercapnic respiratory failure, secondary to above Hypertension Hyperlipidemia Obesity with a BMI of 36.6 kg/m Former tobacco dependence Plan: Patient's medications, labs, imaging reviewed BiPAP is currently on standby Continue supplemental oxygen to maintain oxygen saturation of 90-92%. Agree with diuresis Cardiology is already following After talking with the patient, the atrial fibrillation may be new onset. Based on his CHADS2 score, he should be anticoagulated. This is being managed by cardiology, and will be addressed with them. Patient has already been started on a combination of DuoNeb's, budesonide, formoterol, and IV Solu-Medrol. Negative for influenza, RSV, COVID-19. Patient's mediastinal adenopathy, appears to be chronic, and was demonstrated on previous chest CT back in 2016. Should be followed up outpatient We will continue to follow I have personally seen and examined the patient, performed the documentation and the assessment and plan as written. Number of minutes spent on the visit:20 Time with Patient: Greater than 30
[2023-01-11 07:15] LABS: Glucose,Whole Blood 149 mg/dL (70-110)
[2023-01-11] MEDS: FORMOTEROL FUMARATE 20 MCG/2 ML NEBU INHALATION SCH ×2 (08:34→21:41)
[2023-01-11] MEDS: BUDESONIDE 1 MG/2 ML NEBU INHALATION SCH ×2 (08:34→21:41)
[2023-01-11] MEDS: allopurinoL 300 MG TAB PO SCH (08:59)
[2023-01-11] MEDS: guaiFENesin 600 MG TABLET.ER PO SCH ×4 (08:59→20:58)
[2023-01-11] MEDS: IBUPROFEN 800 MG TAB PO SCH ×2 (08:59→20:56)
[2023-01-11] MEDS: ASPIRIN 81 MG PO SCH (08:59)
[2023-01-11] MEDS: lisinopriL 20 MG TAB PO SCH (08:59)
[2023-01-11] MEDS: atenoloL 50 MG TAB PO SCH ×2 (08:59→20:57)
[2023-01-11] MEDS: ATORVASTATIN 20 MG TAB PO SCH (08:59)
[2023-01-11] MEDS: ENOXAPARIN 40 MG/0.4 ML SYRINGE SQ SCH (09:00)
[2023-01-11 09:05] LABS: African American GFR (CKD) >90 (>60 ml/min/1.73 sqM); Blood Urea Nitrogen 17 mg/dL (9-20); Calcium 9.3 mg/dL (8.4-10.2); Chloride 83 mmol/L (98-107); Glucose 227 mg/dL (74-99); Non-African American GFR(CKD) >90 (>60 ml/min/1.73 sqM); Potassium 3.7 mmol/L (3.5-5.1); Sodium 139 mmol/L (137-145)
[2023-01-11] MEDS: CHOLECALCIFEROL 25 MCG (1000 IU) TABLET PO SCH (09:05)
[2023-01-11 09:11] LABS: Anion Gap 15 mmol/L
[2023-01-11 09:18] LABS: Carbon Dioxide 41 mmol/L (22-30)
--- NOTE | 2023-01-11 13:23 | P.PN ---
Subjective Progress Note Date: 01/11/23 History of present illness: This is a 62 year old male with past medical history of morbid obesity, COPD, home oxygen at 2 L nasal cannula, hypertension, dyslipidemia. Patient was initially seen yesterday in the emergency center and has been maintained on IV Lasix, aspirin, beta latha, CIARA inhibitor. Patient states that has shortness of breath is improved today and he has been urinating quite a bit overnight. He has minimal pedal edema at this time states this is improved. His weight is down 5 kg and he is in negative fluid balance of 1500 ML's. Patient is currently on a fluid restriction of 1500 ML's. Blood pressure 124/87, heart rate between 86 and 101. He is on oxygen at 8 L high flow nasal cannula and most recently a at home was on 4 L is even gradually increasing his oxygen use at home on his own. Echocardiogram Difficult study. Normal left ventricle size and systolic function, severe hypertrophy, mild tricuspid regurgitation. Repeat blood work reveals potassium 3.7, BUN 17 creatinine 0.6. Physical examination: Gen: This is an obese 62-year-old male, he is resting in bed appears to be in no acute distress. VS: reviewed HEENT: Head is atraumatic, normocephalic. Pupils equal, round. Sclerae is anicteric. NECK: Supple. No JVD. LUNGS: Mild bilateral rhonchi. No intercostal retractions. HEART: Regular rate and rhythm. 4/6 systolic ejection murmur and a systolic murmur at the apex. ABDOMEN: Soft No tenderness. EXTREMITIES: Minimal bilateral No pedal edema. No calf tenderness. NEUROLOGICAL: Patient is awake, alert and oriented x3. Assessment: Acute exacerbation of COPD Acute diastolic heart failure, new onset Valvular heart disease Hypertension Dyslipidemia Plan: Continue current cardiac medications Continue IV Lasix for another 24 hours Monitor I&O, daily weights, electrolytes and renal function Further recommendations to follow based upon clinical course Nurse practitioner note has been reviewed, I agree with documented findings and plan of care. Patient was seen and examined. Objective - Vital Signs Vital signs: Vital Signs Temp 98.3 F 01/10/23 20:00 Pulse 98 01/10/23 20:48 Resp 20 01/10/23 20:45 BP 124/87 01/10/23 20:00 Pulse Ox 91 L 01/10/23 20:32 FiO2 50 01/09/23 19:33 Intake & Output 01/10/23 01/11/23 01/11/23 18:59 06:59 18:59 Output Total 1000 500 Balance -1000 -500 Weight 117.2 kg Output: Urine 1000 500 Other: Voiding Method Urinal - Labs CBC & Chem 7: 01/09/23 16:10 01/11/23 08:20 Labs: Abnormal Lab Results - Last 24 Hours (Table) 01/11/23 Range/Units 07:14 POC Glucose (mg/dL) 149 H (70-110) mg/dL Microbiology - Last 24 Hours (Table) 01/09/23 16:10 Blood Culture - Preliminary Blood
[2023-01-11 15:41] VITALS: BMI 35.0
[2023-01-11] MEDS: methylPREDNISolone SOD SUCCI 40 MG/ML 1 ML VIAL IV SCH (15:56)
--- NOTE | 2023-01-11 20:26 | P.PN ---
Progress Note - Text Progress Note Date: 01/11/23 Chief Complaint: Short of breath This is a 62-year-old patient, follows with Dr. Red Ramirez. Patient has been getting more short of breath. Reduce his family doctor who noticed him to be looking caruso. Short of breath. White sputum. No fever no chills. Decreased appetite. No chest pain. Patient has home oxygen 2 L. Patient was here put on BiPAP on arrival. Tired. Up in a chair. December 11: Breathing better. On 5 L nasal cannula. At baseline was on 2 L at home but was up to 5 L before he came to the hospital. Good urine output. and daughter the bedside. Eating better. Cutback DuoNeb 4 times a day. Cutback IV Solu-Medrol. Active Medications Acetaminophen (Acetaminophen Tab 325 Mg Tab) 650 mg PO Q6HR PRN PRN Reason: Mild Pain or Fever > 100.5 Albuterol/Ipratropium (Ipratropium-Albuterol 3 Ml Neb) 3 ml INHALATION RT-QID [facility] Last Admin: 01/11/23 15:16 Dose: 3 ml Allopurinol (Allopurinol 300 Mg Tab) 300 mg PO DAILY [facility] Last Admin: 01/11/23 08:59 Dose: 300 mg Alprazolam (Alprazolam 0.25 Mg Tab) 0.25 mg PO Q6HR PRN PRN Reason: Anxiety Aspirin (Aspirin 81 Mg) 81 mg PO DAILY [facility] Last Admin: 01/11/23 08:59 Dose: 81 mg Atenolol (Atenolol 50 Mg Tab) 50 mg PO BID [facility] Last Admin: 01/11/23 08:59 Dose: 50 mg Atorvastatin Calcium (Atorvastatin 20 Mg Tab) 20 mg PO DAILY [facility] Last Admin: 01/11/23 08:59 Dose: 20 mg Budesonide (Budesonide 1 Mg/2 Ml Nebu) 1 mg INHALATION RT-BID [facility] Last Admin: 01/11/23 08:34 Dose: 1 mg Calcium Carbonate/Glycine (Calcium Carbonate 500 Mg Chewable) 1,000 mg PO Q4HR PRN PRN Reason: Dyspepsia Cholecalciferol (Cholecalciferol 25 Mcg (1000 Iu) Tablet) 75 mcg PO DAILY [facility] Last Admin: 01/11/23 09:05 Dose: 75 mcg Enoxaparin Sodium (Enoxaparin 40 Mg/0.4 Ml Syringe) 40 mg SQ DAILY [facility] Last Admin: 01/11/23 09:00 Dose: 40 mg Formoterol Fumarate (Formoterol Fumarate 20 Mcg/2 Ml Nebu) 20 mcg INHALATION RT-BID [facility] Last Admin: 01/11/23 08:34 Dose: 20 mcg Furosemide (Furosemide 10 Mg/Ml 4 Ml Vial) 40 mg IV Q8HR [facility] Last Admin: 01/11/23 15:56 Dose: 40 mg Guaifenesin (Guaifenesin 600 Mg Tablet.Er) 600 mg PO QID [facility] Last Admin: 01/11/23 17:04 Dose: 600 mg Ibuprofen (Ibuprofen 800 Mg Tab) 800 mg PO BID [facility] Last Admin: 01/11/23 08:59 Dose: 800 mg Lactulose (Lactulose 20 Gm/30 Ml Cup) 20 gm PO DAILY PRN PRN Reason: Constipation Lisinopril (Lisinopril 20 Mg Tab) 20 mg PO DAILY [facility] Last Admin: 01/11/23 08:59 Dose: 20 mg Melatonin (Melatonin 3 Mg Tablet) 3 mg PO HS PRN PRN Reason: Insomnia Methylprednisolone Sodium Succinate (Methylprednisolone Sod Succi 40 Mg/Ml 1 Ml Vial) 40 mg IV Q8HR [facility] Last Admin: 01/11/23 15:56 Dose: 40 mg Naloxone HCl (Naloxone 0.4 Mg/Ml 1 Ml Vial) 0.2 mg IV Q2M PRN PRN Reason: Opioid Reversal Ondansetron HCl (Ondansetron 4 Mg/2 Ml Vial) 4 mg IVP Q8HR PRN PRN Reason: Nausea And Vomiting Past medical history to include: COPD, hypertension, home oxygen, gout, arthritis, hypercholesterolemia Social history: . Retired from different jobs. Been drinking somewhat excessive alcohol in the past. Smoked a pack a day for 42 years, stopped 3 years ago. Physical examination: VITAL SIGNS: 98, 95, 17, 108/60, 91% on 5 L GENERAL: Up in a chair, breathing a bit better EYES: Pupils equal. Conjunctiva normal. HEENT: External appearance of nose and ears normal, oral cavity grossly normal. NECK: JVD unable to assess; masses not palpable. HEART: First and second heart sounds are normal; edema present. LUNGS: Respiratory rate increased decreased breath sounds, ABDOMEN: Soft, nontender, liver spleen not palpable, no masses palpable. PSYCH: Alert and oriented x3; mood and affect normal. MUSCULOSKELETAL:No Clubbing/cyanosis;muscles-grossly intact INVESTIGATIONS, reviewed in the clinical context: 2-D echo: Severely increased left ventricular wall thickness. EF 55-60%. January 11: Potassium 3.7 bicarb 41 creatinine 0.6 January 09: White count 8.7 hemoglobin 13.6 platelets 225 sodium 137 potassium 4.4 bicarb 42 BUN 14 creatinine 0.58 lactic acid 2.3 Troponin I less than 0.012 proBNP 2019 Influenza type A, B, RSV, COVID-19: Not detected ABG: PH 7.4 pCO2 71 pO2 61 EKG tracing personally reviewed by me-possible atrial fibrillation. Chest x-ray film personally reviewed by me-cardiomegaly, venous prominence Chest CTA: No PE. Multiple enlarged mediastinal lymph node. Small right and minimal left pleural effusion. Assessment plan: -Acute congestive heart failure exacerbation, diastolic dysfunction. EF 55- 60%.: Slow to respond Fluid restriction. IV Lasix 40 mg every 8.. Cardiology following. Telemetry. -Acute COPD exacerbation in a ex-smoker: Some improvement Cutback DuoNeb 4 times a day. Nebulized Perforomist and Pulmicort. Cutback IV Solu-Medrol. 40 mg every 8 -Obesity BMI 36.6 Weight loss measures -Acute hypoxic hypercapnic respiratory failure from seated exacerbation and CHF Patient is put on BiPAP on presentation. Now down to 5 L -Essential hypertension Vasotec 20 mg, Tenormin 50 mg twice a day -Hypercholesterolemia Simvastatin -Primary osteoarthritis Tylenol when necessary Tobacco DuoNeb and IV Solu-Medrol. Patient on 5 L of nasal cannula. Her baseline uses 2 L. Incentive spirometry. Discussed with patient and and daughter the bedside. Follow.
[2023-01-12] MEDS: methylPREDNISolone SOD SUCCI 40 MG/ML 1 ML VIAL IV SCH ×2 (00:03→08:45)
[2023-01-12] MEDS: FUROSEMIDE 10 MG/ML 4 ML VIAL IV SCH ×2 (00:03→08:45)
[2023-01-12] MEDS: FORMOTEROL FUMARATE 20 MCG/2 ML NEBU INHALATION SCH (08:21)
[2023-01-12] MEDS: BUDESONIDE 1 MG/2 ML NEBU INHALATION SCH (08:21)
[2023-01-12] MEDS: IPRATROPIUM-ALBUTEROL 3 ML NEB INHALATION SCH ×2 (08:21→11:13)
[2023-01-12] MEDS: ASPIRIN 81 MG PO SCH (09:27)
[2023-01-12] MEDS: ATORVASTATIN 20 MG TAB PO SCH (09:27)
[2023-01-12] MEDS: IBUPROFEN 800 MG TAB PO SCH (09:28)
[2023-01-12] MEDS: lisinopriL 20 MG TAB PO SCH (09:28)
[2023-01-12] MEDS: allopurinoL 300 MG TAB PO SCH (09:28)
[2023-01-12] MEDS: guaiFENesin 600 MG TABLET.ER PO SCH ×2 (09:28→12:19)
[2023-01-12] MEDS: atenoloL 50 MG TAB PO SCH (09:29)
[2023-01-12] MEDS: CHOLECALCIFEROL 25 MCG (1000 IU) TABLET PO SCH (09:29)
[2023-01-12] MEDS: ENOXAPARIN 40 MG/0.4 ML SYRINGE SQ SCH (09:31)
[2023-01-12 09:42] LABS: African American GFR (CKD) >90 (>60 ml/min/1.73 sqM); Blood Urea Nitrogen 23 mg/dL (9-20); Calcium 9.2 mg/dL (8.4-10.2); Chloride 84 mmol/L (98-107); Glucose 112 mg/dL (74-99); Non-African American GFR(CKD) >90 (>60 ml/min/1.73 sqM); Potassium 3.8 mmol/L (3.5-5.1); Sodium 139 mmol/L (137-145)
[2023-01-12 09:50] LABS: Anion Gap 11 mmol/L
[2023-01-12 09:55] LABS: Carbon Dioxide 44 mmol/L (22-30)
--- NOTE | 2023-01-12 10:48 | P.PN ---
Subjective Progress Note Date: 01/12/23 History of present illness: This is a 62 year old male with past medical history of morbid obesity, COPD, home oxygen at 2 L nasal cannula, hypertension, dyslipidemia. Patient was initially seen yesterday in the emergency center and has been maintained on IV Lasix, aspirin, beta latha, CIARA inhibitor. Patient states that has shortness of breath is improved today and he has been urinating quite a bit overnight. He has minimal pedal edema at this time states this is improved. His weight is down 5 kg and he is in negative fluid balance of 1500 ML's. Patient is currently on a fluid restriction of 1500 ML's. Blood pressure 124/87, heart rate between 86 and 101. He is on oxygen at 8 L high flow nasal cannula and most recently a at home was on 4 L is even gradually increasing his oxygen use at home on his own. Echocardiogram Difficult study. Normal left ventricle size and systolic function, severe hypertrophy, mild tricuspid regurgitation. Repeat blood work reveals potassium 3.7, BUN 17 creatinine 0.6. 01/12 Patient states that his shortness of breath continues to improve much better s bert he came in the hospital. His oxygen is now down to 5 L nasal cannula which is what he was utilizing at home. Blood pressure 128/93, heart rate is in the 80s. Repeat blood work reveals sodium 139, potassium 3.8, BUN 23 creatinine 0.6. Noted that CO2 is 44. Physical examination: Gen: This is an obese 62-year-old male, he is resting in bed appears to be in no acute distress. VS: reviewed HEENT: Head is atraumatic, normocephalic. Pupils equal, round. Sclerae is anicteric. NECK: Supple. No JVD. LUNGS: Mild bilateral rhonchi. No intercostal retractions. HEART: Regular rate and rhythm. 4/6 systolic ejection murmur and a systolic murmur at the apex. ABDOMEN: Soft No tenderness. EXTREMITIES: Minimal bilateral No pedal edema. No calf tenderness. NEUROLOGICAL: Patient is awake, alert and oriented x3. Assessment: Acute exacerbation of COPD Acute diastolic heart failure, new onset Valvular heart disease Hypertension Dyslipidemia Plan: Continue current cardiac medications Transition IV Lasix to oral 40 mg daily Monitor I&O, daily weights, electrolytes and renal function Patient is cleared for discharge from cardiology and may follow-up in the office with Dr. Clau Grullon in 2 weeks. Nurse practitioner note has been reviewed, I agree with documented findings and plan of care. Patient was seen and examined. Objective - Vital Signs Vital signs: Vital Signs Temp 96.2 F L 01/12/23 08:00 Pulse 80 01/12/23 08:00 Resp 18 01/12/23 08:00 BP 128/93 01/12/23 08:00 Pulse Ox 92 L 01/12/23 08:00 FiO2 50 01/09/23 19:33 Intake & Output 01/11/23 01/12/23 01/12/23 18:59 06:59 18:59 Intake Total 354 Balance 354 Weight 117.2 kg 117.4 kg Intake: Oral 354 Other: Voiding Method Urinal Urinal - Labs CBC & Chem 7: 01/09/23 16:10 01/12/23 07:52 Labs: Abnormal Lab Results - Last 24 Hours (Table) 01/11/23 Range/Units 08:20 Chloride 83 L (98-107) mmol/L Carbon Dioxide 41 H* (22-30) mmol/L Creatinine 0.60 L (0.66-1.25) mg/dL Glucose 227 H (74-99) mg/dL Microbiology - Last 24 Hours (Table) 01/09/23 16:10 Blood Culture - Preliminary Blood
--- NOTE | 2023-01-12 12:09 | P.PN ---
Subjective Progress Note Date: 01/12/23 Principal diagnosis: Dypsnea. I am seeing this patient in consultation today 01/11/2023 after he was sent in from his primary care physician's office after being found to be hypoxic. Patient is a 62-year-old white male with past medical history significant for severe oxygen and steroid dependent COPD, hypertension, and is a previous tobacco dependence. His primary care provider is Dr. Ramirez. Patient has followed with Dr. Miller at the pulmonary office in the past, for his severe oxygen and steroid dependent COPD, but has not been back for some years. He has an FEV1 40% of predicted. Patient reportedly had a routine follow-up visit with his primary care provider yesterday, and was found to be hypoxic. On arrival to the emergency room, he was placed on BiPAP with settings 16/6 and FiO2 of 50%. ABGs done on these settings show a pO2 of 61, CO2 of 71, pH is 7.44. Currently, the BiPAP is on standby. Patient is currently sitting in the recliner, on 6 L/m nasal cannula, in no acute distress. SpO2 is 91%, which is likely near his baseline. Patient states that he chronically wears 2 L nasal cannula at home, but has increased his oxygen over the last couple months, and is up to 6 L/m nasal cannula at home. He also admits increased lower extremity swelling. Den ies any chest pain, heart palpitations, orthopnea. He denies any fevers, chills, cough, chest pain, hemoptysis. Chest x-ray on arrival was consistent with pulmonary edema. Follow-up chest CTA did not show any acute pulmonary embolism. It showed small right and minimal left pleural effusions with adjacent compressive atelectasis versus infiltrate. There was also was incidentally some multiple enlarged mediastinal lymph nodes, measuring up to 1.5 cm in the paratracheal region. There were several other lymph nodes measuring greater than 1 cm. This appears to be somewhat chronic finding, as the patient had a chest CT back in 2015 which showed a 1.4 x 1 CM right paratracheal lymph node and a 1.9 x 1.3 subcarinal lymph node. Echocardiogram showed a preserved ejection fraction of 55-60% and severe increased LVH. NT proBNP was elevated at 2020. EKG on arrival shows atrial fibrillation with controlled ventricular rate. No acute ischemic changes. CBC unremarkable. CMP on arrival showed a sodium 137, potassium 4.4, chloride 88, serum bicarb 42, BUN 14, creatinine 0.58, glucose 97. Troponin less than 0.012. Negative for influenza and RSV, COVID-19. Patient has been afebrile. He is being monitored on the cardiac stepdown unit. Progress note dated 01/12/2023. 62-year-old male seen in consultation yesterday. He was admitted with a diagnosis of shortness of breath, secondary to CHF, and COPD. I used to see this patient over at the [facility], but have not seen him for a couple years now. Currently, the patient is on 5 L nasal cannula. He is not receiving any IV fluids. He does use BiPAP intermittently, at 16/6, and 50%. Sodium 139, potassium 3.8, chloride 94, CO2 44, anion gap 11, BUN 23, and creatinine 0.60. Objective - Vital Signs Vital signs: Vital Signs Temp 97.8 F 01/12/23 11:35 Pulse 79 01/12/23 11:35 Resp 17 01/12/23 11:35 BP 101/72 01/12/23 11:35 Pulse Ox 96 01/12/23 11:35 FiO2 50 01/09/23 19:33 Intake & Output 01/11/23 01/12/23 01/12/23 18:59 06:59 18:59 Intake Total 354 365 Balance 354 365 Weight 117.2 kg 117.4 kg Intake: Oral 354 365 Other: Voiding Method Urinal Urinal Urinal - Exam No acute distress, oriented 3. 3 L saturation is 96%. HEENT examination is grossly unremarkable. Mucous membranes are moist. No oral lesions. Neck supple. Full range of motion. No adenopathy thyromegaly or neck vein distention. Cardiovascular examination reveals regular rhythm rate. S1-S2 normal. No S3 or S4. No discernible murmur noted. Heart sounds are distant. Heart rate 79 bpm. Lungs reveal scattered bilateral rhonchi. Basilar crackles are noted. No wheezes. 3 L saturation is 96%. Abdomen soft bowel sounds are heard. No masses or tenderness. Extremities are intact. No cyanosis clubbing or edema. Skin is without rash or lesion. Neurologic examination is brief but nonfocal. - Labs CBC & Chem 7: 01/09/23 16:10 01/12/23 07:52 Labs: Abnormal Lab Results - Last 24 Hours (Table) 01/12/23 Range/Units 07:52 Chloride 84 L (98-107) mmol/L Carbon Dioxide 44 H* (22-30) mmol/L BUN 23 H (9-20) mg/dL Creatinine 0.60 L (0.66-1.25) mg/dL Glucose 112 H (74-99) mg/dL Microbiology - Last 24 Hours (Table) 01/09/23 16:10 Blood Culture - Preliminary Blood Assessment and Plan Assessment: Acute on chronic hypoxemic and hypercapnic respiratory failure, multifactorial, secondary to exacerbation of diastolic congestive heart failure and acute COPD exacerbation. Atrial fibrillation with controlled ventricular rate. Mediastinal adenopathy, incidentally found on follow-up chest CTA. Severe oxygen and steroid dependent COPD. Chronic hypoxemic and hypercapnic respiratory failure. Hypertension. Hyperlipidemia. Obesity with a BMI of 36.6 kg/m. Former tobacco dependence. Plan: Plan dated 01/12/2023. The patient's on appropriate medications. He is being treated for both congestive heart failure, and COPD. Currently, the patient is on 3 L of oxygen. Saturations are 96%. He seems to be resting comfortably. He does use BiPAP intermittently, at 16/6, and 50%. Labs, x-rays, and medications are reviewed. We will continue to follow the patient, and make recommendations along the way. I have not seen this patient for a number of years, as it used to see him at the [facility]. Time with Patient: Less than 30
[2023-01-12 13:12] VITALS: BP 100/68; PULSE 90; RESP 18; TEMP 96.6
--- NOTE | 2023-01-12 18:47 | P.DS ---
Providers Date of admission: 01/09/23 19:30 Expected date of discharge: 01/12/23 Attending physician: Dylon Barry Consults: 01/09/23 19:30 Consult Physician Routine Consulting Provider: [facility] Reason/Comments: Acute pulmonary edema Do you want consulting provider notified?: Yes 01/10/23 19:03 Consult Physician Routine Consulting Provider: Maxi Miller Reason/Comments: Respiratory failure Do you want consulting provider notified?: Yes Primary care physician: Red Ramirez [place] [facility] Course: Chief Complaint: Short of breath This is a 62-year-old patient, follows with Dr. Red Ramirez. Patient has been getting more short of breath. Reduce his family doctor who noticed him to be looking caruso. Short of breath. White sputum. No fever no chills. Decreased appetite. No chest pain. Patient has home oxygen 2 L. Patient was here put on BiPAP on arrival. Tired. Up in a chair. December 11: Breathing better. On 5 L nasal cannula. At baseline was on 2 L at home but was up to 5 L before he came to the hospital. Good urine output. and daughter the bedside. Eating better. Cutback DuoNeb 4 times a day. Cutback IV Solu-Medrol. December 12: Patient doing much better. Oxygen down to 3 L on which she'll be discharged. Care was discussed with the patient the and the daughter the bedside. Questions answered. Prescription done for DuoNeb, steroid taper. Patient follows with Dr. Miller for pulmonary and cardiology. Fluid restriction. Discussion and discharge planning more than 35 minutes Past medical history to include: COPD, hypertension, home oxygen, gout, arthritis, hypercholesterolemia Social history: . Retired from different jobs. Been drinking somewhat excessive alcohol in the past. Smoked a pack a day for 42 years, stopped 3 years ago. Physical examination: VITAL SIGNS: 96.6, 90, 18, 100/68, 93% on 3 L GENERAL: Up in a chair, comfortable EYES: Pupils equal. Conjunctiva normal. HEENT: External appearance of nose and ears normal, oral cavity grossly normal. NECK: JVD unable to assess; masses not palpable. HEART: First and second heart sounds are normal; edema decreased LUNGS: Respiratory rate increased decreased breath sounds, ABDOMEN: Soft, nontender, liver spleen not palpable, no masses palpable. PSYCH: Alert and oriented x3; mood and affect normal. MUSCULOSKELETAL:No Clubbing/cyanosis;muscles-grossly intact INVESTIGATIONS, reviewed in the clinical context: January 12: Potassium 3.8 creatinine 0.6 2-D echo: Severely increased left ventricular wall thickness. EF 55-60%. January 11: Potassium 3.7 bicarb 41 creatinine 0.6 January 09: White count 8.7 hemoglobin 13.6 platelets 225 sodium 137 potassium 4.4 bicarb 42 BUN 14 creatinine 0.58 lactic acid 2.3 Troponin I less than 0.012 proBNP 2019 Influenza type A, B, RSV, COVID-19: Not detected ABG: PH 7.4 pCO2 71 pO2 61 EKG tracing personally reviewed by me-possible atrial fibrillation. Chest x-ray film personally reviewed by me-cardiomegaly, venous prominence Chest CTA: No PE. Multiple enlarged mediastinal lymph node. Small right and minimal left pleural effusion. Assessment plan: -Acute congestive heart failure exacerbation, diastolic dysfunction. EF 55- 60%.: Improved Fluid restriction. Lasix 40 mg a day. Follow-up with cardiology -Acute COPD exacerbation in a ex-smoker: Better Discharge on DuoNeb 3 times a day. Prednisone taper. Overnight liver -Chronic hypoxic respiratory failure on 2 L of oxygen at home from COPD -Obesity BMI 36.6 Weight loss measures -Acute hypoxic hypercapnic respiratory failure from seated exacerbation and CHF: Better On 3 L today -Essential hypertension Vasotec 20 mg, Tenormin 50 mg twice a day -Hypercholesterolemia Simvastatin -Primary osteoarthritis Tylenol when necessary Disposition: Home Plan - Discharge Summary Discharge Rx Participant: No New Discharge Prescriptions: New Furosemide [Lasix] 40 mg PO DAILY #30 tab guaiFENesin [Mucinex] 600 mg PO BID #60 tab predniSONE 10 mg PO DAILY #30 tab Ipratropium-Albuterol Nebulize [Duoneb 0.5 mg-3 mg/3 ml Soln] 3 ml INHALATION TID #90 each Continue allopurinoL [Zyloprim] 300 mg PO DAILY Enalapril [Vasotec] 20 mg PO DAILY Aspirin EC [Ecotrin Low Dose] 81 mg PO DAILY predniSONE 5 mg PO DAILY Simvastatin 40 mg PO DAILY Ibuprofen [Motrin] 800 mg PO BID Budesonide [Pulmicort] 0.5 mg INHALATION RT-BID atenoloL [Tenormin] 50 mg PO BID [place]-3/Dha/Epa/Fish Oil [Fish Oil 1,000 mg Softgel] 1 cap PO DAILY Cholecalciferol (Vitamin D3) [Vitamin D3 (3000 Iu)] 75 mcg PO DAILY Discontinued Albuterol Nebulized [Ventolin Nebulized] 2.5 mg INHALATION RT-BID Discharge Medication List Aspirin EC [Ecotrin Low Dose] 81 mg PO DAILY 01/09/23 [History] Budesonide [Pulmicort] 0.5 mg INHALATION RT-BID 01/09/23 [History] Cholecalciferol (Vitamin D3) [Vitamin D3 (3000 Iu)] 75 mcg PO DAILY 01/09/23 [History] Enalapril [Vasotec] 20 mg PO DAILY 01/09/23 [History] Ibuprofen [Motrin] 800 mg PO BID 01/09/23 [History] [place]-3/Dha/Epa/Fish Oil [Fish Oil 1,000 mg Softgel] 1 cap PO DAILY 01/09/23 [History] Simvastatin 40 mg PO DAILY 01/09/23 [History] allopurinoL [Zyloprim] 300 mg PO DAILY 01/09/23 [History] atenoloL [Tenormin] 50 mg PO BID 01/09/23 [History] predniSONE 5 mg PO DAILY 01/09/23 [History] Furosemide [Lasix] 40 mg PO DAILY #30 tab 01/12/23 [Rx] Ipratropium-Albuterol Nebulize [Duoneb 0.5 mg-3 mg/3 ml Soln] 3 ml INHALATION TID #90 each 01/12/23 [Rx] guaiFENesin [Mucinex] 600 mg PO BID #60 tab 01/12/23 [Rx] predniSONE 10 mg PO DAILY #30 tab 01/12/23 [Rx] Follow up Appointment(s)/Referral(s): Maxi Miller DO [Doctor of Osteopathic Medicine] - 01/24/23 Red Ramirez MD [Primary Care Provider] - 01/20/23 1:00 pm (Your appt is in the [place] office.) Janusz Grullon MD [STAFF PHYSICIAN] - 2 Weeks ([facility] office will call you with appointment date and time.) Patient Instructions/Handouts: Heart Failure (DC), Pulmonary Edema (DC) Activity/Diet/Wound Care/Special Instructions: fluid restrict 1800 cc/day kevin wraps Discharge Disposition: HOME SELF-CARE
[2023-01-13] MEDS ORDERED: FUROSEMIDE 40 MG TAB PO SCH (09:00)
== END 2023-01-12 13:55 | disposition home or self-care (01) | DRG 291 ==
LOC: EC 15:40 → 3SCARD 19:30
PROVIDERS: ADMIT Hospitalist; ATTEND Hospitalist
PROC: 5A09357 Assistance with Respiratory Ventilation, Less than 24 Consecutive Hours, Continuous Positive Airway Pressure (ICD-10-PCS; principal; 2023-01-09)
DX: I11.0 Hypertensive heart disease with heart failure (principal); I50.33 Acute on chronic diastolic (congestive) heart failure; J96.21 Acute and chronic respiratory failure with hypoxia; J96.22 Acute and chronic respiratory failure with hypercapnia; J44.1 Chronic obstructive pulmonary disease with (acute) exacerbation; J98.11 Atelectasis; E66.01 Morbid (severe) obesity due to excess calories; R59.0 Localized enlarged lymph nodes; G47.00 Insomnia, unspecified; F41.9 Anxiety disorder, unspecified; E78.00 Pure hypercholesterolemia, unspecified; I48.91 Unspecified atrial fibrillation; Z71.3 Dietary counseling and surveillance; K59.00 Constipation, unspecified; M10.9 Gout, unspecified; M19.91 Primary osteoarthritis, unspecified site; Z99.81 Dependence on supplemental oxygen; Z68.36 Body mass index [BMI] 36.0-36.9, adult; Z79.52 Long term (current) use of systemic steroids; Z79.82 Long term (current) use of aspirin; Z79.899 Other long term (current) drug therapy; Z20.822 Contact with and (suspected) exposure to COVID-19; Z87.891 Personal history of nicotine dependence
CPT/HCPCS: 36415; 36600; 71045; 71275; 80048; 80053; 82803; 82805; 83605; 83735; 83880; 84484; 85025; 85379; 85610; 85730; 87040; 87636; 93005; 93306; 94640; 94660; 94760; 96372; 96374; 96375; 96376; 99285